=== PATIENT | male | born 1985 | race Caucasian/White ===

== ENCOUNTER 2025-03-21 18:11 | Emergency (ER) | payer SELFPAY ==
[2025-03-21] MEDS ORDERED: NA CHLORIDE 0.9% 1,000 ML ONE ×2 (19:37→22:02)
[2025-03-21 19:59] LABS: Absolute Monocytes 0.6 K/uL (0.1-1.3); Absolute Neutrophil 7.2 K/uL (1.8-8.0); Basophils % 0.4 % (0-1.3); Eosinophils % 0.4 % (0-4.4); Hematocrit 45.8 % (39.6-49.0); Hemoglobin 16.1 g/dL (13.6-17.9); Lymphocytes % 10.7 % (15.3-44.8); MCH 31.6 pg (27.0-35.0); MCHC 35.2 g/dL (32.0-36.0); MCV 89.6 fL (80-100); MPV 6.8 fL (7.6-11.3); Monocytes % 7.1 % (3.3-12.3); Neutrophils % 81.4 % (41.7-73.7); Nucleated Red Blood Cells % 0.3 % (0-0); Platelets 221 thou/uL (152-406); RBC Red Blood Cell Count 5.11 M/uL (4.33-5.43); Red Cell Distribution Width 13.9 % (12.1-15.2)
[2025-03-21 20:07] LABS: PT Prothrombin Time 11.2 SECONDS (10-13.0); Protime INR 0.98
--- NOTE | 2025-03-21 20:11 | RAD REPORT ---
EXAM: CT brain without contrast HISTORY: Seizure;Trauma COMPARISON: None TECHNIQUE: Multiple contiguous axial images were obtained and a CT of the brain without contrast. Sag ittal and coronal reformats were performed. FINDINGS: No evidence of hydrocephalus, intracranial hemorrhage, or extra-axial fluid collection. The brain is normal in morphology. The calvarium is intact. The visualized paranasal sinuses and mastoid air cells are essentially clear . IMPRESSION: No evidence of acute intracranial abnormality. EXAM: CT of the cervical spine without contrast HISTORY: Seizure;Trauma COMPARISON: None TECHNIQUE: Multiple contiguous axial images were obtained in a CT of the cervical spine without contr ast. Sagittal and coronal reformats were performed. FINDINGS: The vertebral bodies demonstrate normal height and alignment. No evidence of acute fracture or subluxation.. No degenerative changes are present. No prevertebral soft tissue swelling is seen. The posterior facets are well aligned. Normal alignment of the skull base with the cervical spine is seen. The lung apices are unremarkable. IMPRESSION: No evidence of acute osseous abnormality of the cervical spine.
[2025-03-21 20:30] LABS: ALT/SGPT 52 U/L (16-61); AST/SGOT 16 U/L (15-37); Albumin 3.8 g/dL (3.4-5.0); Alkaline Phosphatase 123 U/L (45-117); BUN Blood Urea Nitrogen 10 mg/dL (7-18); Bicarbonate 27 mEq/L (21-32); Bilirubin Direct 0.3 mg/dL (0-0.2); Bilirubin Indirect, Calculated 0.5 mg/dL (0.2-0.8); Bilirubin Total 0.8 mg/dL (0.2-1.0); Globulin 3.9 g/dL (2.3-3.5); Glomerular Filtration Rate 75 ml/min (=/>90); Glucose Level 148 mg/dL (74-106); Protein, Total 7.7 g/dL (6.4-8.2); Sodium Level 139 mEq/L (136-145)
--- NOTE | 2025-03-21 20:32 | RAD REPORT ---
EXAM: XR Knee Right 3 View HISTORY: [facility] MAIN fall;Swelling;Pain Bed Name: [id number] COMPARISON: None TECHNIQUE: 3 views of the left knee were obtained. FINDINGS: No knee effusion is seen. There is no evidence of acute fracture or dislocation. No signif icant degenerative changes are seen. No soft tissue swelling or other soft tissue abnormality is present. IMPRESSION: No evidence of acute osseous abnormality.
[2025-03-21 21:15] LABS: Creatine Phosphokinase 53 U/L (39-308)
[2025-03-21] MEDS ORDERED: LEVETIRACETAM 500 MG/5 ML VIAL IV ONE (21:34)
[2025-03-21] MEDS ORDERED: NA CHLORIDE 0.9% 100 ML ONE (21:35)
[2025-03-21] MEDS ORDERED: POTASSIUM 25 MEQ EFFERV TAB ONE (21:51)
--- NOTE | 2025-03-21 21:51 | ER ---
Nurse's Notes [facility] Name: Rohith Camara Age: 40 yrs Sex: Male : 1985 Arrival Date: 03/21/2025 Time: 18:11 Bed DX1 Private MD: Diagnosis: Seizure, fall, facial abrasion, hypokalemia Presentation: 03/21 18:36 Chief complaint: Patient states: he was on a run and passed out and fell, abrasion and me1 laceration to right forehead. c/o headache and right knee pain. Hx of seizures. Per his running karma on his phone he was out for 20-30 minutes and he states he felt postictal/disoriented when he came to. Not on antiemetics per his neurologist. Coronavirus screen: Vaccine status: Patient reports receiving the 2nd dose of the covid vaccine. Ebola Screen: No symptoms or risks identified at this time. Initial Sepsis Screen: Does the patient meet any 2 criteria? HR > 90 bpm. Does the patient have a suspected source of infection? No. Patient's initial sepsis screen is negative. Risk Assessment: Do you want to hurt yourself or someone else? Patient reports no desire to harm self or others. Onset of symptoms was March 21, 2025 at 16:50. 18:36 Method Of Arrival: Wheelchair me1 18:36 Acuity: WADE 3 me1 Historical: - Allergies: 18:40 ariththromycin; me1 - PMHx: 18:40 Seizure; Anxiety; OCD/panic disorder; me1 - PSHx: 18:40 None; me1 - Immunization history:: Adult Immunizations up to date. - Infectious Disease History:: Denies. - Social history:: Smoking status: Patient denies any tobacco usage or history of. Screenin:20 [facility] ED Fall Risk Assessment (Adult) History of falling in the last 3 months, lg3 including since admission Yes- single mechanical fall (1 pt) Confusion or Disorientation No (0 pts) Intoxicated or Sedated No (0 pts) Impaired Gait No (0 pts) Mobility Assist Device Used No (0 pt) Altered Elimination No (0 pt) Score/Fall Risk Level 0 - 2 = Low Risk Oriented to surroundings, Maintained a safe environment, Educated pt \T\ family on fall prevention, incl call for assistance when getting out of bed, Assessed \T\ reinforced patient's understanding of fall precautions. Abuse screen: Denies threats or abuse. Denies injuries from another. Nutritional screening: No deficits noted. Tuberculosis screening: No symptoms or risk factors identified. Assessment: 19:20 General: Appears in no apparent distress. comfortable, Behavior is calm, cooperative. lg3 Pain: Complains of pain in head. Neuro: No deficits noted. Metzger Agitation-Sedation Scale (RASS): 0 - Alert and Calm Level of Consciousness is awake, alert, obeys commands, Oriented to person, place, time, situation. Cardiovascular: No deficits noted. Denies chest pain, shortness of breath, Capillary refill < 3 seconds Clubbing of nail beds is absent JVD is absent Patient's skin is warm and dry. Rhythm is sinus tachycardia. Respiratory: No deficits noted. Airway is patent Respiratory effort is even, unlabored, Respiratory pattern is regular, symmetrical, Breath sounds are clear bilaterally. GI: No deficits noted. No signs and/or symptoms were reported involving the gastrointestinal system. : No signs and/or symptoms were reported regarding the genitourinary system. EENT: No deficits noted. No signs and/or symptoms were reported regarding the EENT system. Derm: Skin is intact, is healthy with good turgor, Skin is dry, Skin is normal, Skin temperature is warm Wound noted face. Musculoskeletal: No deficits noted. No signs and/or symptoms reported regarding the musculoskeletal system. Circulation, motion, and sensation intact. Range of motion: intact in all extremities. 22:05 General: PT to DC after fluid bolus. lg3 22:08 Reassessment: Patient appears in no apparent distress at this time. No changes from lg3 previously documented assessment. Patient and/or family updated on plan of care and expected duration. Pain level reassessed. Patient is alert, oriented x 3, equal unlabored respirations, skin warm/dry/pink. Patient states feeling better. Patient states symptoms have improved. Vital Signs: 18:36 BP 135 / 95; Pulse 112; Resp 19; Temp 98.1; Pulse Ox 100% ; Weight 68.04 kg; Height 5 me1 ft. 10 in. ; Pain 8/10; 22:51 BP 127 / 89; Pulse 89; Resp 17 S; Pulse Ox 99% on R/A; lg3 18:36 Body Mass Index 21.52 (68.04 kg, 177.8 cm) me1 18:36 Pain Scale: Adult me1 ED Course: 18:14 Patient arrived in ED. im 18:40 Triage completed. me1 18:40 Arm band placed on Patient placed. me1 18:56 Darryn Severino MD is Attending Physician. butch 19:01 CT Head C Spine In Process Unspecified. EDMS 19:20 Patient has correct armband on for positive identification. lg3 19:20 Wound care: to abrasion, located on face was cleaned with soap and water, Patient lg3 tolerated well. 19:29 Knee Right 3 View XRAY In Process Unspecified. EDMS 19:48 Initial lab(s) drawn, by ED staff, sent to lab. EKG done, by ED staff, reviewed by yaquelin Severino MD. Inserted saline lock: 20 gauge in left antecubital area, using aseptic technique. Blood collected. Flushed with 10 mL NS. 20:01 Attending Physician role handed off by Darryn Severino MD sp3 20:01 Radha Hunt MD is Attending Physician. sp3 21:37 Lactate w/ 2H reflex if indic. Sent. vk 22:52 No provider procedures requiring assistance completed. IV discontinued, intact, lg3 bleeding controlled, No redness/swelling at site. Pressure dressing applied. Administered Medications: 19:49 Drug: NS 0.9% IV 1000 ml IV at 1000 ml once; to be given as a bolus over 60 minutes lg3 Route: IV; Rate: 1000 ml; Site: left antecubital; 21:38 Follow up: Response: No adverse reaction; IV Status: Completed infusion; IV Intake: lg3 1000ml 21:38 Drug: Keppra IV 1000 mg IV at calculated rate once Route: IV; Rate: calculated rate; lg3 Site: left antecubital; 22:00 Follow up: Response: No adverse reaction; IV Status: Completed infusion; IV Intake: lg3 100ml 21:55 Drug: Potassium PO Effervescent Tablet 50 mEq PO once; dissolve in 4 ounces of water or lg3 juice Route: PO; 22:00 Follow up: Response: No adverse reaction lg3 22:05 Drug: NS 0.9% IV 1000 ml IV at 1000 ml once; to be given as a bolus over 30 minutes lg3 Route: IV; Rate: 1000 ml; Site: left antecubital; 22:51 Follow up: Response: No adverse reaction; IV Status: Completed infusion; IV Intake: lg3 1000ml Medication: 19:20 VIS not applicable for this client. lg3 Intake: 21:38 IV: 1000ml; Total: 1000ml. lg3 22:00 IV: 100ml; Total: 1100ml. lg3 22:51 IV: 1000ml; Total: 2100ml. lg3 Outcome: :51 Discharge ordered by . sp3 22:52 Discharged to home ambulatory, lg3 22:52 Condition: stable 22:52 Discharge instructions given to patient, Instructed on discharge instructions, follow up and referral plans. medication usage, Demonstrated understanding of instructions, follow-up care, medications, Prescriptions given X 1, :52 Patient left the ED. lg3 Signatures: Dispatcher [employer] Darryn Elliott MD MD cha Able, Lacie, RN RN lg3 Radha Hunt MD MD sp3 Phuong Mora Michelle RN RN mn1 Cheryl Cazares
--- NOTE | 2025-03-21 21:51 | EDPHYS ---
Physician Documentation [facility] Name: Rohith Camara Age: 40 yrs Sex: Male : 1985 Arrival Date: 03/21/2025 Time: 18:11 Bed DX1 Private MD: ED Physician Radha Hunt HPI: 03/21 21:10 This 40 yrs old Male presents to ER via Wheelchair with complaints of Possible seizure, sp3 Head Injury-Adult. 21:10 40-year-old male with history of prior seizure activity who has been off his Keppra sp3 since late 2022, anxiety, OCD, now presents to the ED with chief complaint possible seizure, fall and head injury. Patient states that he was jogging and towards the end of his run he thinks he had a seizure fell and injured the right side of his face and right knee. Patient states he felt like he had a postictal state and then came to. He presents today for evaluation of his head injury and blood work to help elucidate whether he had a seizure or not. He denies any repetitive events. He also denies significant headache, neck pain, chest pain, shortness of breath, abdominal pain, vomiting, diarrhea, extremity pain other than the right knee, or any other signs or symptoms on ROS at this time.. Historical: - Allergies: 18:40 ariththromycin; me1 - PMHx: 18:40 Seizure; Anxiety; OCD/panic disorder; me1 - PSHx: 18:40 None; me1 - Immunization history:: Adult Immunizations up to date. - Infectious Disease History:: Denies. - Social history:: Smoking status: Patient denies any tobacco usage or history of. ROS: 21:13 Constitutional: Negative for fever, chills, and weight loss, Eyes: Negative for injury, sp3 pain, redness, and discharge, ENT: Negative for injury, pain, and discharge, Neck: Negative for injury, pain, and swelling, Cardiovascular: Negative for chest pain, palpitations, and edema, Respiratory: Negative for shortness of breath, cough, wheezing, and pleuritic chest pain, Abdomen/GI: Negative for abdominal pain, nausea, vomiting, diarrhea, and constipation, Back: Negative for injury and pain, Skin: Negative for injury, rash, and discoloration, Psych: Negative for depression, anxiety, suicide ideation, homicidal ideation, and hallucinations, Allergy/Immunology: Negative for hives, rash, and allergies, Endocrine: Negative for neck swelling, polydipsia, polyuria, polyphagia, and marked weight changes, Hematologic/Lymphatic: Negative for swollen nodes, abnormal bleeding, and unusual bruising, 21:13 All other systems are negative, Exam: 19:57 ECG was reviewed by the Attending Physician. butch 21:16 Constitutional: This is a well developed, well nourished patient who is awake, alert, sp3 and in no acute distress. Eyes: Pupils equal round and reactive to light, extra-ocular motions intact. Lids and lashes normal. Conjunctiva and sclera are non-icteric and not injected. Cornea within normal limits. Periorbital areas with no swelling, redness, or edema. ENT: Nares patent. No nasal discharge, no septal abnormalities noted. External auditory canals are clear. Oropharynx with no redness, swelling, or masses, exudates, or evidence of obstruction, uvula midline. Mucous membranes moist. Neck: Trachea midline, no thyromegaly or masses palpated, and no cervical lymphadenopathy. Supple, full range of motion without nuchal rigidity, or vertebral point tenderness. No Meningismus. Chest/axilla: Normal chest wall appearance and motion. Nontender with no deformity. No lesions are appreciated. Cardiovascular: Regular rate and rhythm with a normal S1 and S2. No gallops, murmurs, or rubs. Normal PMI, no JVD. No pulse deficits. Respiratory: Lungs have equal breath sounds bilaterally, clear to auscultation and percussion. No rales, rhonchi or wheezes noted. No increased work of breathing, no retractions or nasal flaring. Abdomen/GI: Soft, non-tender, with normal bowel sounds. No distension or tympany. No guarding or rebound. No evidence of tenderness throughout. Back: No spinal tenderness. No costovertebral tenderness. Full range of motion. Skin: Warm, dry with normal turgor. Normal color with no rashes, no lesions, and no evidence of cellulitis. Neuro: Awake and alert, GCS 15, oriented to person, place, time, and situation. Cranial nerves II-XII grossly intact. Motor strength 5/5 in all extremities. Sensory grossly intact. Cerebellar exam normal. Normal gait. Psych: Awake, alert, with orientation to person, place and time. Behavior, mood, and affect are within normal limits. 21:16 Head/face: Abrasions to the right temporal region of the face and cheek.. 21:16 Musculoskeletal/extremity: Right knee abrasion and pain. No drawer laxity or other abnormality noted. Patient is ambulatory.. Vital Signs: 18:36 BP 135 / 95; Pulse 112; Resp 19; Temp 98.1; Pulse Ox 100% ; Weight 68.04 kg; Height 5 me1 ft. 10 in. ; Pain 8/10; 22:51 BP 127 / 89; Pulse 89; Resp 17 S; Pulse Ox 99% on R/A; lg3 18:36 Body Mass Index 21.52 (68.04 kg, 177.8 cm) me1 18:36 Pain Scale: Adult me1 MDM: 19:03 Medical Screening Exam initiated butch 21:17 Data reviewed: vital signs, nurses notes, lab test result(s), EKG, radiologic studies. sp3 ED course: 40-year-old male with probable seizure with subsequent fall and head injury and injury to the right knee. Head CT and knee x-ray are negative. Labs without significant findings. Will add on CK and lactate. I had a discussion with the patient and we both agree that we should restart the Keppra. Will give a loading dose in the ED and send patient home on p.o. prescription. Patient to follow-up with his neurologist. Currently vital signs are normal including heart rate.. 21:50 ED course: CK at 53. Will replenish potassium as well. Keppra loading dose given. Will sp3 discharge on p.o. Keppra and follow-up to neurology.. 22:01 ED course: Lactic acid at 2.7. We will give additional liter normal saline and sp3 discharge home.. 03/21 18:44 Order name: Acetaminophen; Complete Time: 21:49 iw 03/21 18:44 Order name: Basic Metabolic Panel; Complete Time: 21:49 iw 03/21 18:44 Order name: CBC with Diff; Complete Time: 20:43 iw 03/21 18:44 Order name: ETOH Level; Complete Time: 20:43 iw 03/21 18:44 Order name: Hepatic Function; Complete Time: 21:49 iw 03/21 18:44 Order name: PT-INR; Complete Time: 20:43 iw 03/21 18:44 Order name: Ptt, Activated; Complete Time: 20:43 iw 03/21 18:44 Order name: Salicylate; Complete Time: 20:43 iw 03/21 21:00 Order name: Lactate w/ 2H reflex if indic. sp3 03/21 21:05 Order name: Creatine Phosphokinase; Complete Time: 21:49 EDMS 03/21 18:44 Order name: CT Head C Spine; Complete Time: 20:43 iw 03/21 18:44 Order name: Knee Right 3 View XRAY; Complete Time: 20:43 iw 03/21 18:44 Order name: EKG; Complete Time: 18:44 iw 03/21 18:44 Order name: EKG - Nurse/Tech; Complete Time: 19:49 iw 03/21 18:44 Order name: IV Saline Lock; Complete Time: 19:49 iw 03/21 18:44 Order name: Labs collected and sent; Complete Time: 19:49 iw 03/21 21:10 Order name: Wound Care; Complete Time: 21:33 sp3 EC:57 Rate is 91 beats/min. Rhythm is regular. QRS [place] is Normal. SC interval is normal. QRS butch interval is normal. QT interval is prolonged at 487 msec. No Q waves. T waves are Normal. No ST changes noted. Clinical impression: NSR w/ Non-specific ST/T Changes and No evidence of ischemia. Interpreted by me. Reviewed by me. Administered Medications: 19:49 Drug: NS 0.9% IV 1000 ml IV at 1000 ml once; to be given as a bolus over 60 minutes lg3 Route: IV; Rate: 1000 ml; Site: left antecubital; 21:38 Follow up: Response: No adverse reaction; IV Status: Completed infusion; IV Intake: lg3 1000ml 21:38 Drug: Keppra IV 1000 mg IV at calculated rate once Route: IV; Rate: calculated rate; lg3 Site: left antecubital; 22:00 Follow up: Response: No adverse reaction; IV Status: Completed infusion; IV Intake: lg3 100ml 21:55 Drug: Potassium PO Effervescent Tablet 50 mEq PO once; dissolve in 4 ounces of water or lg3 juice Route: PO; 22:00 Follow up: Response: No adverse reaction lg3 22:05 Drug: NS 0.9% IV 1000 ml IV at 1000 ml once; to be given as a bolus over 30 minutes lg3 Route: IV; Rate: 1000 ml; Site: left antecubital; 22:51 Follow up: Response: No adverse reaction; IV Status: Completed infusion; IV Intake: lg3 1000ml Disposition Summary: 03/21/25 21:51 Discharge Ordered Notes: Location: Home sp3 Condition: Stable sp3 Diagnosis - Seizure, fall, facial abrasion, hypokalemia sp3 Followup: sp3 - With: Private Physician - When: Upon discharge from the Emergency Department - Reason: Continuance of care Discharge Instructions: - Discharge Summary Sheet sp3 - Seizure, Adult sp3 Forms: - Work release form lg3 - Medication Reconciliation Form sp3 - Antibiotic Education sp3 - Prescription Opioid Use sp3 - Patient Portal Instructions sp3 - Leadership Thank You Letter sp3 Prescriptions: - Keppra 500 mg Oral tablet - take 1 tablet ORAL route every 8 hours; 90 tablet; Refills: 0, Product sp3 Selection Permitted Signatures: Dispatcher [employer] EDMS Darryn Severino MD MD cha Williams, Irene, RN RN iw Taylor Harrison RN RN lg3 Radha Hunt MD MD sp3 Karli Melendez RN RN me1 Corrections: (The following items were deleted from the chart) 21:07 21:01 CREATINE PHOSPHOKINASE+C.LAB.BRZ ordered. [facility] 21:13 21:10 This 40 yrs old Male presents to ER via Wheelchair with complaints of Syncope, sp3 Head Injury-Adult. sp3
[2025-03-21 23:40] VITALS: BP 135/95; TEMP 98.1; O2SAT 100
--- NOTE | 2025-03-26 16:59 | EKG ---
Test Date: 2025-03-21 Test Time: 19:54:47 Senior Behavioral Scientist: VIC MEASUREMENT RESULTS: Intervals: Rate: 91 DC: 146 QRSD: 80 QT: 396 QTc: 487 [place]: P: 51 DC: 146 QRS: 28 T: 66 INTERPRETIVE STATEMENTS: Normal sinus rhythm Possible Left atrial enlargement Prolonged QT Abnormal ECG No previous ECG available for comparison Electronically Signed On 03-26-25 16:52:05 CDT by Silvio Torres
== END 2025-03-21 22:52 | disposition home or self-care (01) ==
LOC: ER 18:11
DX: G40.909 Epilepsy, unspecified, not intractable, without status epilepticus (principal); S00.81XA Abrasion of other part of head, initial encounter; E87.6 Hypokalemia
CPT/HCPCS: 36415; 70450; 72125; 80048; 80076; 80143; 80179; 82077; 82550; 83605; 85025; 85610; 85730; 93005; 96361; 96365; 99284; J1953; J7030